=== PATIENT | male | born 2005 ===

== ENCOUNTER 2023-07-21 11:34 | Emergency (ER) | payer BC, SELFPAY ==
[2023-07-21 11:42] VITALS: BP 129/78
[2023-07-21 12:47] VITALS: BMI 30.7
--- NOTE | 2023-07-21 14:01 | ED.GENMED ---
History of Present Illness
General
Chief Complaint: Skin Surface Trauma
Source: patient
Exam Limitations: none
Time Seen by Provider: 07/21/23 12:34
Nursing documentation reviewed up to this point in time: agreed with
Travel History
Have you had any contact with someone who has COVID-19?: No
Do you have any symptoms of coronavirus? Fever > 100 degrees, chills, cough, shortness of breath, sore throat, loss of taste or smell, muscle aches, or headache?: No
History of Present Illness
History of Present Illness:
Patient is a 18-year-old male presents to the ED with 2 lacerations to left lower leg from chain saw. He denies any pain. unsure of last tetanus. He denies any other injuries.
Review of Systems
Review of Systems
Allergies reviewed?: Yes
All Other Systems: ROS reviewed and negative except as documented in HPI and ROS
Constitutional: Reports no symptoms; Denies fever, fatigue or chills
Musculoskeletal: Reports other (laceration to right lower leg )
Skin: Reports no symptoms
Psychiatric: Reports no symptoms
Phy Exam
General Physical Exam
General Presentation: no apparent distress
General age: appears stated age
General Skin: warm and dry
General Habitus: normal
General Mental: alert
General Hydration: appears well hydrated
Neurological Exam
Neurological Exam: alert and oriented x3
Musculoskeletal Exam
Musculoskeletal Exam: other (left anterior lower leg w/ 2 linear horizontal lacerations #1 approx 8 cm and second laceration 4 cm thru to subcut tissue only )
Skin Exam
Skin Exam: normal color and warm/dry
Psychiatric Exam
Psychiatric Exam: normal mood/affect
Course
Orders/Labs/Results
Orders:
Orders
07/21/23 13:59
Tetanus/Diphth/Acelpertussis [Adacel] 0.5 ml IM .ONCE ONE
07/21/23 14:30
Cephalexin Monohydrate [Keflex] 500 mg PO NOW STA
Vital Signs
Initial and Last Documented VS:
Initial Vital Signs
Temp Pulse Resp BP Pulse Ox
98.6 F 82 18 129/78 99
07/21/23 11:42 07/21/23 11:42 07/21/23 11:42 07/21/23 11:42 07/21/23 11:42
Last Documented Vital Signs
Temp Pulse Resp BP Pulse Ox
98.6 F 82 18 129/78 99
07/21/23 11:42 07/21/23 11:42 07/21/23 11:42 07/21/23 11:42 07/21/23 11:42
Procedures
Laceration Closure
Left Anterior Leg:
Status of Wound: clean
Size of Wound in cm: 8
Description of Wound Edges: ragged
Preparation: cleaned with saline and cleaned with Betadine
Anesthesia: 1% Lidocaine with epi
Revision/Debridement: minor revision and irrigate-direct pressure
Wound exploration: extensive cleaning of contaminated wound and explored to base- no FB
Type of Closure: layered closure, interrupted sutures and mattress sutures
Skin Closure Material: 3-0 nylon and other (nylon 3.0 (3 vertical mattress and 11simple sutures along with 4 vicryl )
Number of sutures: 18
Additional information:
2nd laceration sutured with one vertical mattress with 3.0 nylon and 4 simple sutures
MDM/Problems Addressed
Differential Diagnosis Includes:
Not limited to laceration, likely tendon injury
MDM/Problems Addressed:
Patient with laceration to subcutaneous tissue only to left anterior mary repaired as documented with vertical mattress simple sutures and subcutaneous sutures.
No tendon no bony injury. Patient no acute distress ambulatory. Tetanus was updated patient was given a dose of Keflex and prescription was sent to pharmacy. Wound care reviewed
*Critical Care Note
Total Time (30-74mins, 75-104mins- exclusive of procedures): Not Applicable
ED Attending Note
-
Portions of this chart may have been created with voice recognition software.� Occasional wrong word or��sound alike� substitutions may have occurred due to the inherent limitations of voice recognition software.
Discharge Plan
Departure
Patient Disposition: Home (Routine Discharge)
Date of Disposition: 07/21/23
Time of Disposition: 14:18
Patient with high blood pressure during this ER visit?: No
Condition: Fair
Covid-19: Not Applicable
Discharge Problem:
Laceration
Instructions: Wound Care (DC), Laceration Repair With Stitches (DC)
Prescriptions:
New
cephalexin 500 mg capsule
500 mg PO Q6H Qty: 20 0RF
Referrals:
Silverio Jaquez MD [Family Provider] -
Activity Restrictions/Additional Instructions:
Keep wound clean and dry for 24 hours after 24 hours wash twice a day with soap and water pat dry and apply small layer of antibiotic ointment to the area. Do wound care twice a day. See family doctor as needed in the next 2 to 3 days for wound
check. Antibiotic was sent to her pharmacy for the next 5 days to prevent infection.
sutures are to be removed in the next 10-12 days. Return if any signs of infection increased pain swelling redness drainage fever chills.
Interventions
Interventions:
*Risk Screen - Suicide Last Done: 07/21/23 12:47
*General Assessment Last Done: 07/21/23 12:47
*Neglect/Abuse Screening Last Done: 07/21/23 12:47
ED- Fall Risk Assessment Last Done: 07/21/23 12:47
*ED COVID-19 Vaccine History Last Done: 07/21/23 11:42
ED-Skin Assessment Last Done: 07/21/23 12:47
Discharge Date and Time
Print Language: [place]
[2023-07-21] MEDS: ADACEL 0.5 ML IM (14:21)
[2023-07-21] MEDS: KEFLEX 500 MG PO (14:38)
[2023-07-21 14:45] VITALS: BP 128/76
--- NOTE | 2023-07-21 14:45 | EDRN ---
Reviewed discharge instructions with patient. Verbalized understanding. Ambulated with steady gait to the lobby.
== END 2023-07-21 14:55 | disposition home or self-care (01) ==
LOC: EMR 11:34
PROVIDERS: EMERGENCY PHYSICIAN Emergency Medicine; FAMILY PHYSICIAN Family Medicine
DX: S81.822A Laceration with foreign body, left lower leg, initial encounter (principal); W29.3XXA Contact with powered garden and outdoor hand tools and machinery, initial encounter; Y93.H2 Activity, gardening and landscaping
CPT/HCPCS: 12034; 99283; 90471; 90715